=== PATIENT | male | born 1965 | race African-American/Black ===

== ENCOUNTER 2020-05-21 17:31 | Inpatient (IN) ==
[2020-05-21 20:03] LABS: Basophils % 0.1 % (0.0-0.8); Hematocrit 41.8 VOL% (42.0-52.0); Hemoglobin 13.8 GM/DL (14.0-18.0); Immature Granulocytes % 0.5 %; Immature Granulocytes Absolute 0.05 #; Lymphocytes # 1.1 10*3/uL (1.4-4.0); Lymphocytes % 11.8 % (21.2-54.2); Mean Corpuscular Volume 85.1 FL (87-102); Mean Platelet Volume 10.1 FL (9.6-12.0); Monocytes % 10.3 % (1.7-12.7); Neutrophils % 77.3 % (38.7-73.9); Platelet Count 218 T/CUMM (130-400); Red Blood Count 4.91 MC/CUMM (3.8-5.5); Red Cell Distribution Width 12.1 % (9.3-17.3); White Blood Count 9.7 T/CUMM (4-12)
[2020-05-21] MEDS ORDERED: METOCLOPRAMIDE 10 MG/2 ML VIAL IV STA (20:16)
[2020-05-21] MEDS ORDERED: SODIUM CHLORIDE 0.9% 1,000 ML IV STA (20:16)
[2020-05-21] MEDS ORDERED: PANTOPRAZOLE 40 MG VIAL IV STA (20:16)
[2020-05-21] MEDS ORDERED: ONDANSETRON 4 MG/2 ML VIAL IV STA (20:16)
[2020-05-21 20:25] LABS: Albumin 2.9 G/DL (3.4-5.0); Calcium 8.7 MG/DL (8.5-10.1); Osmolality,Calculated 264.5 MOS/KG (273-304); Total Protein 7.8 G/DL (6.4-8.3)
[2020-05-21 20:46] LABS: Ferritin 1701.4 ng/ml (26-388)
[2020-05-21] MEDS ORDERED: NICOTINE 21 MG/24 HR PATCH TRANSDERM PRN (21:56)
[2020-05-21] MEDS ORDERED: ALUMINUM/MAGNES/SIMETH MAX STR 30 ML UDCUP PO PRN (21:56)
[2020-05-21] MEDS ORDERED: ZALEPLON 5 MG CAPSULE PO PRN (21:56)
[2020-05-21] MEDS ORDERED: diphenhydrAMINE CAP 25 MG CAPSULE PO PRN (21:56)
[2020-05-21] MEDS ORDERED: ACETAMINOPHEN 325 MG TABLET PO PRN (21:56)
[2020-05-21] MEDS ORDERED: CALCIUM CARBONATE CHEW 500 MG TABLET PO PRN (21:56)
[2020-05-21] MEDS ORDERED: hydrALAZINE 20 MG/1 ML VIAL IV PRN (21:56)
[2020-05-21] MEDS ORDERED: DEXTROSE 50% 25 GM/50 ML VIAL IV PRN (21:56)
[2020-05-21] MEDS ORDERED: GLUCAGON 1 MG VIAL IM PRN (21:56)
[2020-05-21] MEDS ORDERED: MORPHINE 4 MG/1 ML VIAL IV PRN (21:56)
[2020-05-21] MEDS ORDERED: SIMETHICONE CHEW 125 MG TABLET PO PRN (21:56)
[2020-05-21] MEDS ORDERED: PROMETHAZINE 25 MG/1 ML VIAL IM PRN (21:56)
[2020-05-21] MEDS ORDERED: DOCUSATE SODIUM 100 MG CAPSULE PO PRN (21:56)
[2020-05-21] MEDS ORDERED: AZITHROMYCIN INJ 500 MG in SODIUM CHLORIDE 0.9% 250 ML IV SCH (22:00)
[2020-05-21] MEDS ORDERED: cefTRIAXone 1,000 MG in SYRINGE 1 EACH IV SCH (22:00)
[2020-05-21] MEDS ORDERED: AZITHROMYCIN 250 MG TABLET PO SCH (22:00)
[2020-05-21] MEDS: ONDANSETRON 4 MG/2 ML VIAL IV PRN (22:31)
[2020-05-21] MEDS: SODIUM CHLOR 0.9% KCL 40 MEQ 40 MEQ/1,000 ML BAG IV SCH (23:40)
[2020-05-22 05:44] LABS: Basophils % 0.2 % (0.0-0.8); Hematocrit 40.7 VOL% (42.0-52.0); Hemoglobin 13.4 GM/DL (14.0-18.0); Immature Granulocytes % 0.6 %; Immature Granulocytes Absolute 0.06 #; Lymphocytes % 9.6 % (21.2-54.2); Mean Corpuscular HGB Conc 32.9 GM/DL (32-36); Mean Platelet Volume 10.4 FL (9.6-12.0); Monocytes % 9.3 % (1.7-12.7); Neutrophils % 80.3 % (38.7-73.9); Platelet Count 221 T/CUMM (130-400); Red Blood Count 4.73 MC/CUMM (3.8-5.5); Red Cell Distribution Width 12.1 % (9.3-17.3); White Blood Count 10.2 T/CUMM (4-12)
[2020-05-22 06:02] LABS: Albumin 2.7 G/DL (3.4-5.0); Bilirubin,Total 1.1 MG/DL (0.2-1.0); Calcium 8.7 MG/DL (8.5-10.1); Total Protein 7.2 G/DL (6.4-8.3)
[2020-05-22] MEDS: PANTOPRAZOLE 40 MG TABLET PO SCH (08:57)
[2020-05-22] MEDS: ENOXAPARIN 40 MG/0.4 ML SYRINGE SUBCUT SCH (08:57)
[2020-05-22] MEDS: ZINC SULFATE 220 MG CAPSULE PO SCH (10:52)
[2020-05-22] MEDS: DEXAMETHASONE 4 MG TABLET PO SCH (10:52)
[2020-05-22] MEDS ORDERED: SODIUM CHLORIDE 0.9% 1,000 ML IV PRN (11:12)
[2020-05-22] MEDS: SODIUM CHLOR 0.9% KCL 40 MEQ 40 MEQ/1,000 ML BAG IV SCH ×2 (12:39→23:52)
[2020-05-22] MEDS ORDERED: REMDESIVIR 200 MG in SODIUM CHLORIDE 0.9% 210 ML IV ONE (15:00)
[2020-05-22] MEDS ORDERED: AZITHROMYCIN INJ 500 MG in SODIUM CHLORIDE 0.9% 250 ML IV SCH (21:00)
[2020-05-23 06:27] LABS: Basophils % 0.2 % (0.0-0.8); Hematocrit 43.6 VOL% (42.0-52.0); Hemoglobin 13.9 GM/DL (14.0-18.0); Immature Granulocytes % 0.6 %; Immature Granulocytes Absolute 0.06 #; Lymphocytes % 9.2 % (21.2-54.2); Mean Corpuscular HGB Conc 31.9 GM/DL (32-36); Mean Corpuscular Volume 87.4 FL (87-102); Mean Platelet Volume 11.4 FL (9.6-12.0); Monocytes % 11.3 % (1.7-12.7); Neutrophils % 78.7 % (38.7-73.9); Platelet Count 214 T/CUMM (130-400); Red Blood Count 4.99 MC/CUMM (3.8-5.5); White Blood Count 10.8 T/CUMM (4-12)
[2020-05-23 06:53] LABS: Calcium 8.7 MG/DL (8.5-10.1); Osmolality,Calculated 279.4 MOS/KG (273-304)
[2020-05-23] MEDS: SODIUM CHLOR 0.9% KCL 40 MEQ 40 MEQ/1,000 ML BAG IV SCH ×2 (07:34→10:30)
[2020-05-23] MEDS: DEXAMETHASONE 4 MG TABLET PO SCH (08:28)
[2020-05-23] MEDS: ENOXAPARIN 40 MG/0.4 ML SYRINGE SUBCUT SCH (08:29)
[2020-05-23] MEDS: ZINC SULFATE 220 MG CAPSULE PO SCH (08:29)
[2020-05-23] MEDS: PANTOPRAZOLE 40 MG TABLET PO SCH (08:29)
[2020-05-23] MEDS: REMDESIVIR 100 MG in SODIUM CHLORIDE 0.9% 230 ML IV SCH (09:17)
[2020-05-23] MEDS: ONDANSETRON 4 MG/2 ML VIAL IV PRN (19:45)
[2020-05-23] MEDS: guaiFENesin/DM ER 600-30 MG TABLET PO PRN (19:45)
[2020-05-24] MEDS: SODIUM CHLOR 0.9% KCL 40 MEQ 40 MEQ/1,000 ML BAG IV SCH ×3 (02:09→17:57)
[2020-05-24 05:58] LABS: Basophils % 0.1 % (0.0-0.8); Hematocrit 43.1 VOL% (42.0-52.0); Hemoglobin 13.9 GM/DL (14.0-18.0); Immature Granulocytes % 0.8 %; Immature Granulocytes Absolute 0.11 #; Lymphocytes # 1.8 10*3/uL (1.4-4.0); Lymphocytes % 12.9 % (21.2-54.2); Mean Corpuscular HGB Conc 32.3 GM/DL (32-36); Mean Corpuscular Volume 86.9 FL (87-102); Mean Platelet Volume 10.6 FL (9.6-12.0); Monocytes % 9.6 % (1.7-12.7); Neutrophils % 76.6 % (38.7-73.9); Platelet Count 304 T/CUMM (130-400); Red Blood Count 4.96 MC/CUMM (3.8-5.5); Red Cell Distribution Width 11.9 % (9.3-17.3); White Blood Count 13.8 T/CUMM (4-12)
[2020-05-24 06:16] LABS: Albumin 2.5 G/DL (3.4-5.0); Bilirubin,Total 0.8 MG/DL (0.2-1.0); Calcium 8.6 MG/DL (8.5-10.1); Osmolality,Calculated 272.8 MOS/KG (273-304); Total Protein 7.1 G/DL (6.4-8.3)
[2020-05-24] MEDS: guaiFENesin/DM ER 600-30 MG TABLET PO PRN (06:21)
[2020-05-24 06:24] LABS: Burr Cells Slight; Hypochromasia Slight; Ovalocytes Slight; Platelet Estimate Adequate
[2020-05-24] MEDS: ZINC SULFATE 220 MG CAPSULE PO SCH (09:04)
[2020-05-24] MEDS: REMDESIVIR 100 MG in SODIUM CHLORIDE 0.9% 230 ML IV SCH (09:04)
[2020-05-24] MEDS: ENOXAPARIN 40 MG/0.4 ML SYRINGE SUBCUT SCH (09:04)
[2020-05-24] MEDS: DEXAMETHASONE 4 MG TABLET PO SCH (09:04)
[2020-05-24] MEDS: PANTOPRAZOLE 40 MG TABLET PO SCH (09:04)
[2020-05-24] MEDS ORDERED: ALUM/MAG/SIMETH/LIDO VISC 1:1 30 ML BOTTLE PO ONE (12:00)
[2020-05-25] MEDS: SODIUM CHLOR 0.9% KCL 40 MEQ 40 MEQ/1,000 ML BAG IV SCH ×2 (03:25→15:06)
[2020-05-25 06:12] LABS: Basophils % 0.4 % (0.0-0.8); Hematocrit 43.3 VOL% (42.0-52.0); Hemoglobin 13.9 GM/DL (14.0-18.0); Immature Granulocytes % 2.3 %; Immature Granulocytes Absolute 0.22 #; Lymphocytes # 1.9 10*3/uL (1.4-4.0); Lymphocytes % 19.7 % (21.2-54.2); Mean Corpuscular HGB Conc 32.1 GM/DL (32-36); Mean Corpuscular Volume 86.8 FL (87-102); Monocytes % 12.8 % (1.7-12.7); Neutrophils % 64.8 % (38.7-73.9); Platelet Count 312 T/CUMM (130-400); Red Blood Count 4.99 MC/CUMM (3.8-5.5); Red Cell Distribution Width 11.9 % (9.3-17.3); White Blood Count 9.5 T/CUMM (4-12)
[2020-05-25 06:35] LABS: Lymphocytes 21 % (20-55); Segmented Neutrophils 64 % (50-85); Total Cells Counted 100
[2020-05-25 06:36] LABS: Hypochromasia 1+; Microcytosis 1+; Platelet Estimate Adequate
[2020-05-25 06:37] LABS: Albumin 2.5 G/DL (3.4-5.0); Bilirubin,Total 0.8 MG/DL (0.2-1.0); Calcium 8.5 MG/DL (8.5-10.1); Osmolality,Calculated 276.5 MOS/KG (273-304)
[2020-05-25] MEDS: ZINC SULFATE 220 MG CAPSULE PO SCH (08:36)
[2020-05-25] MEDS: PANTOPRAZOLE 40 MG TABLET PO SCH (08:36)
[2020-05-25] MEDS: DEXAMETHASONE 4 MG TABLET PO SCH (08:36)
[2020-05-25] MEDS: ENOXAPARIN 40 MG/0.4 ML SYRINGE SUBCUT SCH (08:36)
[2020-05-25] MEDS: REMDESIVIR 100 MG in SODIUM CHLORIDE 0.9% 230 ML IV SCH (09:03)
[2020-05-25] MEDS ORDERED: ALUM/MAG/SIMETH/LIDO VISC 1:1 30 ML BOTTLE PO ONE (11:05)
[2020-05-26] MEDS: SODIUM CHLOR 0.9% KCL 40 MEQ 40 MEQ/1,000 ML BAG IV SCH (01:06)
[2020-05-26 05:02] LABS: Basophils # 0.1 10*3/uL (0.0-0.2); Basophils % 0.6 % (0.0-0.8); Eosinophils % 0.1 % (0.00-10.9); Hematocrit 42.2 VOL% (42.0-52.0); Hemoglobin 13.5 GM/DL (14.0-18.0); Immature Granulocytes % 3.7 %; Immature Granulocytes Absolute 0.45 #; Lymphocytes # 2.6 10*3/uL (1.4-4.0); Lymphocytes % 20.8 % (21.2-54.2); Mean Corpuscular Volume 85.9 FL (87-102); Mean Platelet Volume 10.4 FL (9.6-12.0); NRBC # 0.07 10*3/uL; Neutrophils % 59.8 % (38.7-73.9); Platelet Count 332 T/CUMM (130-400); Red Blood Count 4.91 MC/CUMM (3.8-5.5); Red Cell Distribution Width 11.9 % (9.3-17.3); White Blood Count 12.3 T/CUMM (4-12)
[2020-05-26 05:21] LABS: Albumin 2.5 G/DL (3.4-5.0); Bilirubin,Total 0.8 MG/DL (0.2-1.0); Calcium 8.3 MG/DL (8.5-10.1); Osmolality,Calculated 274.7 MOS/KG (273-304); Total Protein 6.8 G/DL (6.4-8.3)
[2020-05-26 05:23] LABS: Burr Cells Slight; Hypochromasia 1+; Lymphocytes 24 % (20-55); Ovalocytes Slight; Platelet Estimate Adequate; Segmented Neutrophils 58 % (50-85); Total Cells Counted 100
[2020-05-26 05:24] LABS: Microcytosis 1+
[2020-05-26 08:05] VITALS: BP 129/86
[2020-05-26] MEDS: ENOXAPARIN 40 MG/0.4 ML SYRINGE SUBCUT SCH (08:52)
[2020-05-26] MEDS: REMDESIVIR 100 MG in SODIUM CHLORIDE 0.9% 230 ML IV SCH (08:52)
[2020-05-26] MEDS: PANTOPRAZOLE 40 MG TABLET PO SCH (08:52)
[2020-05-26] MEDS: ZINC SULFATE 220 MG CAPSULE PO SCH (08:53)
[2020-05-26] MEDS: DEXAMETHASONE 4 MG TABLET PO SCH (08:53)
== END 2020-05-26 11:30 | disposition home or self-care (01) | DRG 177 ==
LOC: N.EDINP 17:31 → N.ED 17:31 → N.2E 22:56 → SUATTDRO 05-22 10:09
PROVIDERS: ADMIT Emergency Medicine; ATTEND Internal Medicine